=== PATIENT | female | born 1980 | race Caucasian/White ===

== ENCOUNTER 2018-07-10 17:00 | Inpatient (IN) | payer BC ==
[~2018-07-10] VITALS: Ht 177.8 cm; Wt 103.9 kg
[~2018-07-10 17:00] MED LIST: AMBIEN 5 MG TABL5 M1 PO; AMOXIL 875 MG875 M2 PO; AYGESTIN 5 MG TA5 M1 PO; AZOR 5-20 MG T1 EACH; BYSTOLIC 5 MG5 M1; CARVEDILOL12.5 MG PO; CIPRO250 M1 PO; CLONAZEPAM 1 MG1 M1 PO; LOSEASONIQUE; MYFORTIC; PREDNISOLONE 5 M5 M1 PO; PROGRAF1 MG PO; PROTONIX40 M2; PROVERA10 MG PO; TRICOR145 MG; ULTRAM 50MG TAB50 MG PO; VICODIN 5-5001 EACH PO; ZOFRAN4 MG PO
[2018-07-10 17:08] VITALS: BP 184/119
[2018-07-10 17:38] LABS: ABSOLUTE BASOPHILS 0.1 thou/uL (0.0-0.2); ABSOLUTE LYMPHOCYTES 2.3 thou/uL (0.8-5.3); ABSOLUTE MONOCYTES 0.4 thou/uL (0.0-1.2); EOSINOPHILS 0.1 %; HEMATOCRIT 37.9 % (37.0-47.0); HEMOGLOBIN 12.7 gm/dL (12.0-15.0); LYMPHOCYTES 17.7 %; MCH 29.3 pg (26.0-34.0); MCHC 33.6 g/dL (28.0-37.0); MCV 87.1 fL (80.0-100.0); MONOCYTES 3.4 %; MPV 7.8 fl. (7.2-11.1); NUCLEATED RBCS 0 /100WBC; PLATELET COUNT* 563 thou/uL (150-400); POLYS 77.8 %; RBC 4.35 mil/uL (4.20-5.00); RDW-CV 13.7 % (10.5-14.5); WBC 12.8 thou/uL (4.0-11.0)
[2018-07-10 17:50] LABS: ANION GAP 10 mmol/L (7-16); BUN 22 mg/dL (7-18); CALCIUM 9.5 mg/dL (8.5-10.1); CHLORIDE 97 mmol/L (98-107); CO2 26 mmol/L (21-32); CREATININE 1.5 mg/dL (0.6-1.3); GLUCOSE 265 mg/dL (70-99); POTASSIUM 3.9 mmol/L (3.5-5.1); SODIUM 133 mmol/L (136-145)
[2018-07-10 18:06] LABS: ALBUMIN 3.6 g/dL (3.4-5.0); ALKALINE PHOSPHATASE 108 U/L (46-116); CK-MB MASS < 0.5 ng/mL (<0.5-3.6); LIPASE 155 U/L (73-393); MAGNESIUM 1.4 mg/dL (1.8-2.4); NT-PRO BRAIN NAT PEPTIDE 430 pg/mL (<300); SGOT 21 U/L (15-37); SGPT 56 U/L (30-65); TOTAL BILIRUBIN 0.4 mg/dL (<0.1-1.0); TOTAL PROTEIN 8.7 g/dL (6.4-8.2); TROPONIN-I LEVEL <0.06 ng/mL (<0.06)
[2018-07-10 19:32] VITALS: BP 178/115
[2018-07-10 19:40] VITALS: BP 167/106
[2018-07-10] MEDS ORDERED: LANTUS100 UNIT/M SUBQ (20:56)
[2018-07-10] MEDS ORDERED: NOVOLOG100 UNIT/1 SUBQ (20:56)
[2018-07-11] VITALS (7 sets, daily range): BP systolic 143–186; BP diastolic 55–122
--- NOTE | 2018-07-11 09:39 | EKG ---
[place] [address] ELECTROCARDIOGRAM REPORT Name: BRADY MONK Room: [address] ADM IN .R.#: [id number] Admission: 07/10/18 Attend Phys: Selena Freitas Discharge: Date of : 78 Report #: [id number] THIS REPORT FOR: //name// [facility] ED Test Date: 2018-07-10 Test Time: 17:05:42 Pat Name: BRADY MONK Department: Room: [facility] Gender: F Net Trainer: : 1980 Requested By: Edi Velazquez Order Number: [id number] MD: Joaquín Camargo Measurements Intervals [place] Rate: 115 P: 25 PA: 152 QRS: 0 QRSD: 92 T: 149 QT: 359 QTc: 497 Interpretive Statements Sinus tachycardia Probable left atrial enlargement Probable left ventricular hypertrophy Nonspecific T abnormalities, lateral leads Borderline prolonged QT interval Compared to ECG 05/18/2008 23:15:15 T-wave abnormality now present Sinus rhythm no longer present Electronically Signed On 07-11-2018 9:39:09 CDT by Joaquín Camargo [email or web address] <ELECTRONICALLY SIGNED> By: Joaquín Camargo MD, MERGED WITH [facility] 07/11/18 0939 1705 1705 Joaquín Camargo MD, FAC /EPI
[2018-07-11 10:19] LABS: CALCIUM 9.2 mg/dL (8.5-10.1); CREATININE 1.3 mg/dL (0.6-1.3); POTASSIUM 3.7 mmol/L (3.5-5.1)
[2018-07-11 11:37] LABS: HEMATOCRIT 38.2 % (37.0-47.0); HEMOGLOBIN 13.1 gm/dL (12.0-15.0); MCH 29.9 pg (26.0-34.0); MCHC 34.4 g/dL (28.0-37.0); MCV 86.8 fL (80.0-100.0); MPV 7.5 fl. (7.2-11.1); RBC 4.4 mil/uL (4.20-5.00); RDW-CV 14.1 % (10.5-14.5); WBC 11.1 thou/uL (4.0-11.0)
[2018-07-12] VITALS: BP 188/117
[2018-07-12 03:54] VITALS: BP 171/106
[2018-07-12 04:53] LABS: AMP/METHAMP Negative (Negative); BARBITURATES Negative (Negative); BENZODIAZEPINES POSITIVE (Negative); COCAINE Negative (Negative); METHADONE Negative (Negative); OPIATES Negative (Negative); PCP Negative (Negative); THC Negative (Negative)
[2018-07-12 08:15] VITALS: BP 162/120
[2018-07-12 12:11] VITALS: BP 154/108
[2018-07-12 20:00] VITALS: BP 155/105
[2018-07-13] VITALS: BP 150/101
[2018-07-13 05:48] LABS: ABSOLUTE BASOPHILS 0.1 thou/uL (0.0-0.2); ABSOLUTE EOSINOPHILS 0.2 thou/uL (0.0-0.7); ABSOLUTE LYMPHOCYTES 4.9 thou/uL (0.8-5.3); ABSOLUTE MONOCYTES 0.7 thou/uL (0.0-1.2); BASOPHILS 0.8 %; EOSINOPHILS 2.3 %; HEMATOCRIT 32.6 % (37.0-47.0); LYMPHOCYTES 49.6 %; MCH 29.5 pg (26.0-34.0); MCHC 33.3 g/dL (28.0-37.0); MCV 88.6 fL (80.0-100.0); MONOCYTES 7.3 %; MPV 8.2 fl. (7.2-11.1); NUCLEATED RBCS 0 /100WBC; RBC 3.68 mil/uL (4.20-5.00); WBC 9.9 thou/uL (4.0-11.0)
[2018-07-13 06:17] LABS: HEMOGLOBIN 10.9 gm/dL (12.0-15.0); PLATELET COUNT* 449 thou/uL (150-400)
[2018-07-13 08:00] VITALS: BP 150/101; BP 166/102
[2018-07-13 08:51] LABS: ALBUMIN 2.2 g/dL (3.4-5.0); CREATININE 1.5 mg/dL (0.6-1.3); MAGNESIUM 1.6 mg/dL (1.8-2.4); POTASSIUM 3.5 mmol/L (3.5-5.1); TOTAL BILIRUBIN 0.3 mg/dL (<0.1-1.0); TOTAL PROTEIN 5.9 g/dL (6.4-8.2)
[2018-07-13 12:40] VITALS: BP 145/104
[2018-07-13 20:00] VITALS: BP 153/115
[2018-07-13 23:00] VITALS: BP 139/91
[2018-07-14 05:00] VITALS: BP 151/105
[2018-07-14 05:15] LABS: GLYCOHEMOGLOBIN (HGB A1C) 8.6 % (4.8-5.6)
[2018-07-14 08:22] LABS: HEMATOCRIT 33.8 % (37.0-47.0); HEMOGLOBIN 11.2 gm/dL (12.0-15.0); MCH 29.3 pg (26.0-34.0); MCV 88.8 fL (80.0-100.0); MPV 8.3 fl. (7.2-11.1); RBC 3.81 mil/uL (4.20-5.00); RDW-CV 14.4 % (10.5-14.5); WBC 10.1 thou/uL (4.0-11.0)
[2018-07-14 09:14] LABS: ALBUMIN 2.2 g/dL (3.4-5.0); CALCIUM 8.1 mg/dL (8.5-10.1); CREATININE 1.5 mg/dL (0.6-1.3); MAGNESIUM 1.2 mg/dL (1.8-2.4); POTASSIUM 3.4 mmol/L (3.5-5.1); TOTAL BILIRUBIN 0.2 mg/dL (<0.1-1.0); TOTAL PROTEIN 5.7 g/dL (6.4-8.2)
[2018-07-14 09:48] VITALS: BP 148/96
[2018-07-14 15:52] VITALS: BP 150/105
[2018-07-14 20:00] VITALS: BP 162/98
[2018-07-15 04:59] LABS: HEMOGLOBIN 10.4 gm/dL (12.0-15.0); MCH 29.9 pg (26.0-34.0); MCHC 33.6 g/dL (28.0-37.0); MCV 88.9 fL (80.0-100.0); RBC 3.48 mil/uL (4.20-5.00); RDW-CV 13.8 % (10.5-14.5); WBC 9.5 thou/uL (4.0-11.0)
[2018-07-15 06:11] LABS: CALCIUM 8.2 mg/dL (8.5-10.1); CREATININE 1.3 mg/dL (0.6-1.3); MAGNESIUM 1.2 mg/dL (1.8-2.4); POTASSIUM 3.8 mmol/L (3.5-5.1)
[2018-07-15 09:15] VITALS: BP 149/100
[2018-07-15 17:39] VITALS: BP 143/93
[2018-07-15 19:55] VITALS: BP 144/94
[2018-07-16 01:18] VITALS: BP 173/109
[2018-07-16 09:00] VITALS: BP 153/108
[2018-07-16 15:23] VITALS: BP 158/107
[2018-07-16 18:18] VITALS: BP 140/89
[2018-07-16 20:00] VITALS: BP 128/85
[2018-07-17] VITALS: BP 164/91
[2018-07-17 08:10] VITALS: BP 161/108
[2018-07-17 12:04] VITALS: BP 149/92
[2018-07-17 16:00] VITALS: BP 152/95
[2018-07-17 20:00] VITALS: BP 151/90
[2018-07-18 08:25] VITALS: BP 151/106
[2018-07-18 15:51] VITALS: BP 139/83
[2018-07-18 20:20] VITALS: BP 138/88
[2018-07-19 08:00] VITALS: BP 147/85
[2018-07-19] MEDS ORDERED: AMBIEN 5 MG TABL5 M1 PO (11:59)
[2018-07-19] MEDS ORDERED: SENNA8.6 MG PO (11:59)
[2018-07-19] MEDS ORDERED: CATAPRES0.1 MG PO (11:59)
[2018-07-19] MEDS ORDERED: PROTONIX40 M1 PO (11:59)
[2018-07-19] MEDS ORDERED: PERCOCET PO (11:59)
[2018-07-19] MEDS ORDERED: CARVEDILOL12.5 MG PO (11:59)
== END 2018-07-19 14:10 | disposition home or self-care (01) | DRG 73 ==
LOC: M.ERS 17:00 → M.2W 18:03 → M.TBA-ER 18:03 → M.2W 19:31 → M.ORTHSURG 07-13 14:53
PROVIDERS: Emergency Medicine; Internal Medicine; Internal Medicine Gastroenterology; ADMIT Internal Medicine
PROC: 05HY33Z Insertion of Infusion Device into Upper Vein, Percutaneous Approach (ICD-10-PCS; principal; 2018-07-11)
PROC: 0D778ZZ Dilation of Stomach, Pylorus, Via Natural or Artificial Opening Endoscopic (ICD-10-PCS; 2018-07-13)
PROC: 3E0G8GC Introduction of Other Therapeutic Substance into Upper GI, Via Natural or Artificial Opening Endoscopic (ICD-10-PCS; 2018-07-13)
DX: E11.43 Type 2 diabetes mellitus with diabetic autonomic (poly)neuropathy (principal); N17.0 Acute kidney failure with tubular necrosis; Z94.0 Kidney transplant status; I10 Essential (primary) hypertension; K31.84 Gastroparesis; E11.65 Type 2 diabetes mellitus with hyperglycemia; E86.0 Dehydration; E66.9 Obesity, unspecified; K59.00 Constipation, unspecified; Z90.49 Acquired absence of other specified parts of digestive tract; Z90.710 Acquired absence of both cervix and uterus; Z79.899 Other long term (current) drug therapy; Z68.32 Body mass index [BMI] 32.0-32.9, adult; Z88.2 Allergy status to sulfonamides; Z88.5 Allergy status to narcotic agent; Z83.3 Family history of diabetes mellitus; Z88.8 Allergy status to other drugs, medicaments and biological substances; Z80.3 Family history of malignant neoplasm of breast; Z80.0 Family history of malignant neoplasm of digestive organs

== ENCOUNTER 2018-08-15 19:45 | Emergency (ER) | payer OTHER ==
[~2018-08-15] VITALS: Ht 177.8 cm; Wt 97.5 kg
[~2018-08-15 19:45] MED LIST changes: +CATAPRES0.1 MG PO; +LANTUS100 UNIT/M SUBQ; +NOVOLOG100 UNIT/1 SUBQ; +PERCOCET PO; +PROTONIX40 M1 PO; +SENNA8.6 MG PO
[2018-08-15 20:37] LABS: ABSOLUTE EOSINOPHILS 0.3 thou/uL (0.0-0.7); ABSOLUTE LYMPHOCYTES 4.7 thou/uL (0.8-5.3); ABSOLUTE MONOCYTES 0.9 thou/uL (0.0-1.2); ABSOLUTE NEUTROPHILS 9.1 thou/uL (1.6-8.1); BASOPHILS 0.2 %; HEMATOCRIT 37.4 % (37.0-47.0); HEMOGLOBIN 12.4 gm/dL (12.0-15.0); LYMPHOCYTES 31.1 %; MCH 28.8 pg (26.0-34.0); MCHC 33.1 g/dL (28.0-37.0); MONOCYTES 6.1 %; MPV 7.8 fl. (7.2-11.1); NUCLEATED RBCS 0 /100WBC; PLATELET COUNT* 611 thou/uL (150-400); POLYS 60.6 %; RDW-CV 14.7 % (10.5-14.5)
[2018-08-15 20:46] LABS: ANION GAP 16 mmol/L (7-16); BUN 32 mg/dL (7-18); CALCIUM 9.3 mg/dL (8.5-10.1); CHLORIDE 101 mmol/L (98-107); CO2 18 mmol/L (21-32); GLUCOSE 128 mg/dL (70-99); POTASSIUM 3.9 mmol/L (3.5-5.1); SODIUM 135 mmol/L (136-145)
[2018-08-15 20:55] LABS: ALBUMIN 3.6 g/dL (3.4-5.0); ALKALINE PHOSPHATASE 88 U/L (46-116); LIPASE 262 U/L (73-393); SGOT 18 U/L (15-37); SGPT 17 U/L (30-65); TOTAL BILIRUBIN 0.3 mg/dL (<0.1-1.0); TOTAL PROTEIN 8.1 g/dL (6.4-8.2); TROPONIN-I LEVEL <0.06 ng/mL (<0.06)
[2018-08-15] MEDS ORDERED: PROMS25 WY RECTAL (21:22)
[2018-08-15] MEDS ORDERED: ZOFRAN ODT4 MG PO (21:22)
[2018-08-15 21:25] LABS: URINE BILIRUBIN NEGATIVE (Negative); URINE BLOOD NEGATIVE (Negative); URINE CLARITY CLEAR; URINE COLOR YELLOW; URINE GLUCOSE-RANDOM NEGATIVE (Negative); URINE KETONES NEGATIVE (Negative); URINE LEUKOCYTES NEGATIVE (Negative); URINE NITRITE NEGATIVE (Negative); URINE PROTEIN 2+ (Negative); URINE UROBILINOGEN 0.2 E.U./dl (0.2-1.0)
[2018-08-15 21:37] LABS: BACTERIA 1-9 Few /HPF (None Seen); CASTS None Seen /LPF (None Seen); CRYSTALS None Seen /LPF (None Seen); SQUAMOUS 4-10 Moderate /LPF (0-3); URINE RBC 3-10 Few /HPF (0-2); URINE WBC 0-5 Rare /HPF (0-5)
[2018-08-15 21:38] LABS: HYALINE CASTS 0-3 Few /LPF (None Seen)
[2018-08-15 21:44] LABS: AMP/METHAMP Negative (Negative); BARBITURATES Negative (Negative); BENZODIAZEPINES Negative (Negative); COCAINE Negative (Negative); METHADONE Negative (Negative); OPIATES Negative (Negative); PCP Negative (Negative); THC Negative (Negative)
[2018-08-15] MEDS ORDERED: COMPAZINE10 MG PO (21:56)
[2018-08-15 22:46] VITALS: BP 128/71
--- NOTE | 2018-08-16 10:05 | EKG ---
[place] [address] ELECTROCARDIOGRAM REPORT Name: BRADY MOKN Room: [facility]#: [id number] Admission: 08/15/18 Attend Phys: Discharge: 08/15/18 Date of : 78 Report #: [id number] THIS REPORT FOR: //name// [facility] ED Test Date: 2018-08-15 Test Time: 20:20:01 Pat Name: BRADY MONK Department: Room: Gender: F Course Instructor: MARLO : 1980 Requested By: Matilde Mai Order Number: [id number] MD: Ryne Hill Measurements Intervals [place] Rate: 89 P: -2 OK: 154 QRS: 15 QRSD: 93 T: 27 QT: 400 QTc: 487 Interpretive Statements Sinus rhythm Borderline prolonged QT interval Compared to ECG 07/10/2018 17:05:42 Sinus tachycardia no longer present T-wave abnormality no longer present Electronically Signed On 08-16-2018 10:05:35 CDT by Ryne Hill [email or web address] <ELECTRONICALLY SIGNED> By: Ryne Hill MD, [facility] 08/16/18 1005 19 19 Ryne Hill MD, FACC /EPI
== END 2018-08-15 22:47 | disposition home or self-care (01) ==
LOC: M.ERS 19:45
PROVIDERS: Nurse Practitioner Family
DX: E86.0 Dehydration (principal); R11.2 Nausea with vomiting, unspecified; E11.9 Type 2 diabetes mellitus without complications; E28.2 Polycystic ovarian syndrome; M81.0 Age-related osteoporosis without current pathological fracture; I10 Essential (primary) hypertension; Z88.8 Allergy status to other drugs, medicaments and biological substances; Z88.5 Allergy status to narcotic agent; Z88.2 Allergy status to sulfonamides; Z94.0 Kidney transplant status; Z86.2 Personal history of diseases of the blood and blood-forming organs and certain disorders involving the immune mechanism; Z90.49 Acquired absence of other specified parts of digestive tract; Z90.710 Acquired absence of both cervix and uterus; Z85.42 Personal history of malignant neoplasm of other parts of uterus; Z79.4 Long term (current) use of insulin

== ENCOUNTER 2020-06-28 20:26 | Emergency (ER) | payer BC ==
[~2020-06-28] VITALS: Ht 177.8 cm; Wt 105.2 kg
[~2020-06-28 20:26] MED LIST changes: +COMPAZINE10 MG PO; +PROMS25 WY RECTAL; +ZOFRAN ODT4 MG PO
[2020-06-28] MEDS ORDERED: NORVASC 2.5 MG2.5 M1 PO (20:44)
[2020-06-28] MEDS ORDERED: ALLOPURINOL 10100 M3 PO (20:44)
[2020-06-28] MEDS ORDERED: FUROSEMIDE 20 M20 MG PO (20:45)
[2020-06-28] MEDS ORDERED: FENOFIBRATE150 MG PO (20:45)
[2020-06-28] MEDS ORDERED: SLEEP AID50 MG PO (20:45)
[2020-06-28] MEDS ORDERED: CARDIZEM SR 60M60 MG PO (20:45)
[2020-06-28] MEDS ORDERED: METFORMIN HCL500 M3 PO (20:46)
[2020-06-28] MEDS ORDERED: SODIUM BICARBO650 M3 PO (20:46)
[2020-06-28] MEDS ORDERED: DESYREL150 MG PO (20:47)
[2020-06-28 21:30] LABS: ABSOLUTE BASOPHILS 0.1 thou/uL (0.0-0.2); ABSOLUTE EOSINOPHILS 0.3 thou/uL (0.0-0.7); ABSOLUTE LYMPHOCYTES 3.6 thou/uL (0.8-5.3); ABSOLUTE MONOCYTES 0.6 thou/uL (0.0-1.2); ABSOLUTE NEUTROPHILS 4.3 thou/uL (1.6-8.1); BASOPHILS 1.5 %; EOSINOPHILS 3.5 %; HEMATOCRIT 33.5 % (37.0-47.0); HEMOGLOBIN 11.9 gm/dL (12.0-15.0); LYMPHOCYTES 40.7 %; MCH 29.7 pg (26.0-34.0); MCHC 35.6 g/dL (28.0-37.0); MCV 83.3 fL (80.0-100.0); MONOCYTES 6.3 %; MPV 7.9 fl. (7.2-11.1); NUCLEATED RBCS 0 /100WBC; PLATELET COUNT* 426 thou/uL (150-400); RBC 4.02 mil/uL (4.20-5.00); RDW-CV 14.4 % (10.5-14.5)
[2020-06-28] MEDS ORDERED: PHENERGAN 25 MG25 M1 PO (21:43)
[2020-06-28] MEDS ORDERED: PERCOCET 5-3251 EACH PO (21:43)
[2020-06-28] MEDS ORDERED: PREDNISONE 20 M20 M1 PO (21:43)
[2020-06-28 21:57] VITALS: BP 168/98
[2020-06-28 22:16] LABS: CREATININE 2.3 mg/dL (0.6-1.3); POTASSIUM 3.7 mmol/L (3.5-5.1)
[2020-06-28 22:17] LABS: CALCIUM 8.3 mg/dL (8.5-10.1)
[2020-06-28 22:19] LABS: ALBUMIN 3.4 g/dL (3.4-5.0); SGPT 31.2 U/L (30-65); TOTAL BILIRUBIN 0.2 mg/dL (<0.1-1.0); TOTAL PROTEIN 6.7 g/dL (6.4-8.2); URIC ACID* 9.3 mg/dL (2.6-7.2)
== END 2020-06-28 21:58 | disposition home or self-care (01) ==
LOC: M.ERS 20:26
PROVIDERS: Family Medicine
DX: M10.071 Idiopathic gout, right ankle and foot (principal); E11.43 Type 2 diabetes mellitus with diabetic autonomic (poly)neuropathy; K31.84 Gastroparesis; Z88.2 Allergy status to sulfonamides; Z88.5 Allergy status to narcotic agent; Z86.2 Personal history of diseases of the blood and blood-forming organs and certain disorders involving the immune mechanism; Z90.49 Acquired absence of other specified parts of digestive tract; Z90.710 Acquired absence of both cervix and uterus; Z85.89 Personal history of malignant neoplasm of other organs and systems

== ENCOUNTER 2020-12-10 15:22 | Emergency (ER) | payer BC ==
[~2020-12-10] VITALS: Ht 177.8 cm; Wt 99.8 kg
[~2020-12-10 15:22] MED LIST changes: +ALLOPURINOL 10100 M3 PO; +CARDIZEM SR 60M60 MG PO; +DESYREL150 MG PO; +FENOFIBRATE150 MG PO; +FUROSEMIDE 20 M20 MG PO; +METFORMIN HCL500 M3 PO; +NORVASC 2.5 MG2.5 M1 PO; +PERCOCET 5-3251 EACH PO; +PHENERGAN 25 MG25 M1 PO; +PREDNISONE 20 M20 M1 PO; +SLEEP AID50 MG PO; +SODIUM BICARBO650 M3 PO
[2020-12-10] MEDS ORDERED: AUGMENTIN 875-1 EACH PO (15:41)
[2020-12-10] MEDS ORDERED: HYDROCODON-ACE1 EAC7 PO (15:41)
[2020-12-10 15:46] VITALS: BP 126/88
== END 2020-12-10 15:50 | disposition home or self-care (01) ==
LOC: M.ERS 15:22
DX: S02.5XXA Fracture of tooth (traumatic), initial encounter for closed fracture (principal); I10 Essential (primary) hypertension; E11.43 Type 2 diabetes mellitus with diabetic autonomic (poly)neuropathy; K31.84 Gastroparesis; Z88.5 Allergy status to narcotic agent; Z88.2 Allergy status to sulfonamides; Z88.8 Allergy status to other drugs, medicaments and biological substances; Z86.2 Personal history of diseases of the blood and blood-forming organs and certain disorders involving the immune mechanism; Z90.49 Acquired absence of other specified parts of digestive tract; Z90.710 Acquired absence of both cervix and uterus; Z85.89 Personal history of malignant neoplasm of other organs and systems; Z79.4 Long term (current) use of insulin; X58.XXXA Exposure to other specified factors, initial encounter; Y93.89 Activity, other specified; Y92.89 Other specified places as the place of occurrence of the external cause; Y99.8 Other external cause status

== ENCOUNTER → 2022-01-15 | Outpatient (CLI) | payer BC ==
[~2022-01-15] MED LIST changes: +AUGMENTIN 875-1 EACH PO; +HYDROCODON-ACE1 EAC7 PO
[2022-01-15 16:01] LABS: ABSOLUTE BASOPHILS 0.1 thou/uL (0.0-0.2); ABSOLUTE EOSINOPHILS 0.2 thou/uL (0.0-0.7); ABSOLUTE LYMPHOCYTES 2.4 thou/uL (0.8-5.3); ABSOLUTE MONOCYTES 0.7 thou/uL (0.0-1.2); ABSOLUTE NEUTROPHILS 6.8 thou/uL (1.6-8.1); BASOPHILS 1.2 %; EOSINOPHILS 2.4 %; HEMATOCRIT 31.7 % (37.0-47.0); HEMOGLOBIN 10.4 gm/dL (12.0-15.0); LYMPHOCYTES 23.4 %; MCH 29.6 pg (26.0-34.0); MCHC 32.9 g/dL (28.0-37.0); MCV 89.9 fL (80.0-100.0); MONOCYTES 6.4 %; MPV 7.1 fl. (7.2-11.1); NUCLEATED RBCS 0 /100WBC; PLATELET COUNT* 495 thou/uL (150-400); POLYS 66.6 %; RBC 3.52 mil/uL (4.20-5.00); RDW-CV 14.1 % (10.5-14.5); WBC 10.2 thou/uL (4.0-11.0)
[2022-01-15 16:06] LABS: URINE BILIRUBIN NEGATIVE (Negative); URINE BLOOD TRACE (Negative); URINE CLARITY SL CLOUDY; URINE COLOR YELLOW; URINE GLUCOSE-RANDOM NEGATIVE (Negative); URINE KETONES NEGATIVE (Negative); URINE NITRITE-REFLEX NEGATIVE (Negative); URINE PROTEIN NEGATIVE (Negative); URINE UROBILINOGEN 0.2 E.U./dl (0.2-1.0)
[2022-01-15 16:08] LABS: URINE LEUKOCYTES-REFLEX 3+ (Negative)
[2022-01-15 16:18] LABS: ALBUMIN 3.7 g/dL (3.4-5.0); CALCIUM 8.8 mg/dL (8.5-10.1); CREATININE 3.8 mg/dL (0.6-1.3); PHOSPHORUS* 4.6 mg/dL (2.5-4.9); POTASSIUM 4.4 mmol/L (3.5-5.1); TOTAL BILIRUBIN 0.2 mg/dL (<0.1-1.0); URIC ACID* 6.6 mg/dL (2.6-7.2)
[2022-01-15 16:30] LABS: SQUAMOUS 4-10 Moderate /LPF (0-3)
[2022-01-15 16:31] LABS: BACTERIA-REFLEX 1-9 Few /HPF (None Seen); CASTS None Seen /LPF (None Seen); CRYSTALS None Seen /LPF (None Seen); URINE RBC 0-2 Rare /HPF (0-2); URINE WBC-REFLEX 6-15 Few /HPF (0-5)
== END ==
LOC: M.LAB 15:34
PROVIDERS: ATTEND Internal Medicine
DX: Z51.81 Encounter for therapeutic drug level monitoring (principal); N30.00 Acute cystitis without hematuria; Z94.0 Kidney transplant status; Z79.899 Other long term (current) drug therapy